=== PATIENT | male | born 1950 | race Caucasian/White ===

== ENCOUNTER → 2016-07-07 | Outpatient (CLI) | payer BC ==
[~2016-07-07] MED LIST: ALLO100T PO; BROM0.07; MULT-506 PO; NADO40TA20 PO; NAPR1TAB9 PO; PRED1SUS3; SILD50TA PO
== END | disposition home or self-care (01) ==
LOC: C.RDSM 13:25
PROVIDERS: ATTEND Physical Medicine & Rehabilitation Sports Medicine
DX: M25.531 Pain in right wrist (principal); M25.532 Pain in left wrist

== ENCOUNTER → 2016-08-12 | Day surgery (SDC) | payer BC ==
[2016-07-23 12:14] LABS: BASO % 0.6 %; BASO ABS # 0.03 K/uL (0-0.2); COMPLETE YES; EOS % 3.5 %; HEMATOCRIT 48.7 % (42-52); IG% 0.2 %; LYMPH % 29.3 %; LYMPH ABS # 1.52 K/uL (1.2-3.4); MEAN CELL VOLUME 95.5 fL (80-100); MEAN CORPUSCULAR HEMOGLOBIN 33.3 pg (25-34); MEAN CORPUSCULAR HGB CONC 34.9 g/dl (32-36); MEAN PLATELET VOLUME 11.1 fL (7.4-10.4); MONO % 8.1 %; NEUT % 58.3 %; PLATELET COUNT 204 K/uL (130-400); WHITE BLOOD COUNT 5.18 K/uL (4.8-10.8)
[2016-07-23 12:31] LABS: BLOOD UREA NITROGEN 29 mg/dl (7-18); BUN/CREATININE RATIO 30.3 (10-20); CALCIUM 8.9 mg/dl (8.5-10.1); CARBON DIOXIDE 30 mmol/L (21-32); CHLORIDE 105 mmol/L (98-107); CREATININE 0.94 mg/dl (0.60-1.40); GLUCOSE 102 mg/dl (70-99); POTASSIUM 4.5 mmol/L (3.5-5.1); SODIUM 140 mmol/L (136-145)
[2016-07-25 11:23] VITALS: Ht 177.8 cm; Wt 84.1 kg
[~2016-08-12] VITALS: Ht 177.8 cm; Wt 84.1 kg
[~2016-08-12] MED LIST changes: +ATROPINE SULFATE 0.1 MG/ML 5ML SYR IV PRN; -BROM0.07; +BUPIVACAINE 0.5 % 5 MG/1 ML PF 10ML VIAL ONE; +CEFAZOLIN 2000 MG/60 ML D5W IV SCH; +EpHEDrine SULFATE INJ 50 MG/ML AMP IV PRN; +FENTANYL CITRATE INJ 50 MCG/1 ML 2 ML VIAL ONE; +FLUMAZENIL 0.1 MG/1 ML 10 ML VIAL IV PRN; +HYDROmorphone INJ 1 MG/ML SYR IV PRN; +LABETALOL HCL IV 5 MG/ML 20ML IV PRN; +LACTATED RINGER'S 1000ML 1,000 ML IV SCH; +LIDOCAINE HCL 2% 2 ML VIAL (20MG/ML) ONE; +LIDOCAINE HCL 2% LOCAL 20 ML VIAL ONE; +MIDAZOLAM HCL 1 MG/ML 2ML VIAL ONE; -NADO40TA20 PO; +NALOXONE HCL 0.4 MG/1 ML VIAL/CARP IV PRN; +ONDANSETRON INJ 2 MG/ML 2 ML VIAL IV PRN; -PRED1SUS3; +PROMETHAZINE HCL INJ 12.5 MG in SODIUM CHLORIDE 0.9% 50ML 50 ML IV PRN; +PROPOFOL IV EMULSION 10 MG/ML 20 ML VIAL IV ONE; -SILD50TA PO; +SODIUM CHLORIDE 0.9% 1000ML 1,000 ML IV SCH
--- NOTE | 2016-08-12 06:36 | History & Physical Bridge Note ---
H&P Re-Evaluation Bridge Note: I have examined the patient, reviewed the History & Physical and in the interval since the performance of the History & Physical I have noted the following changes of clinical significance: No changes noted
--- NOTE | 2016-08-12 06:37 | Discharge Instructions ---
Discharge Instructions Visit Reason for Visit: Right Carpal Tunnel Syndrome Discharge Discharge Diagnosis / Problem: same Discharge Goals Goal(s): Decrease discomfort, Improve function Medications Stopped Medications Name(s): na Restart Stopped Medication(s): use scripts as directed Activity Recommendations Activity Limitations: as noted below Lifting Limitations: until after follow-up appointment Exercise/Sports Limitations: until after follow-up appointment May Resume Sexual Activity: when tolerated Shower/Bathe: keep incision dry Driving or Machine Use: no limitations Anesthesia . Post Anesthesia Instructions: If you have had General Anesthesia or IV Sedation: * Do not drive today. * Resume driving when surgeon permits. * Do not make important decisions or sign legal documents today. * Call surgeon for: 1. Temperature elevations greater than 101 degrees F. 2. Uncontrollable pain. 3. Excessive bleeding. 4. Persistent nausea and vomiting. 5. Medication intolerance (nausea, vomiting or rash). * For nausea and vomiting use only clear liquids such as: tea, soda, bouillon until nausea subsides, then gradually increase diet as tolerated. * If you have any concerns or questions, call your surgeon's office. If physician is unavailable and it is an emergency, call 911 or go to the nearest emergency room. . Instructions / Follow-Up Instructions / Follow-Up The following are instructions to follow after minor hand surgery. ACTIVITY RECOMMENDATIONS: * Minimize activity until your first visit after surgery. * No excessive walking, jogging, sports or laboring. * Return to activity is individualized. Most patients are able to return to everyday activities within 2 weeks. * Return to sports or intensive labor usually occurs at 1-2 months. * DRIVING: Driving may be resumed when you feel you have adequate pain control and use of the hand. * BATHING: You may shower or sponge-bathe immediately after surgery. The dressing will need to be covered with a plastic bag or plastic wrap until the dressing is changed on the fourth or fifth day after surgery. Once the dressing has been changed on the fourth or fifth day after surgery, you may shower and get the incision wet. * Wash with regular soap and water. * Do not bathe (submerge the incision), soak, swim or use a hot tub until the incision is completely healed over with normal skin and the doctor has given the OK to proceed. * There is no need to apply any ointments, powders or salves to your incision. * Do not apply alcohol or hydrogen peroxide directly to the incision. Diluted peroxide (50:50 mixture with sterile saline) may be used to clean dried blood from around the incision area. WORK/SCHOOL: * You may return to sedentary work or school when you are feeling comfortable. This is usually 3-7 days after surgery. * Expect increased discomfort with increased activity. Continue to elevate and ice the hand as much as possible. DIET: * Resume previous diet. MEDICATIONS: * You will have a prescription for pain medication and an anti-inflammatory medication after surgery. Use the pain pills for severe pain and the anti-inflammatory for less severe pain. * Once the pain pills have run out, try to use the anti-inflammatory. If this is not effective then contact the office for assistance. * The pain medication may cause nausea, constipation and sleepiness. You should see how they affect you before driving or similar activity. * The anti-inflammatory may cause stomach upset and bleeding. If this occurs, let your doctor know immediately . * Some patients may need blood clot prevention. This can be done with either a pill or a simple shot. Your doctor will advise you on when to begin these medications and how to take them. * Do not take aspirin or other anti-inflammatory products (i.e. Advil or Aleve ) if taking blood thinner medication. * Take a stool softener like Colace or a stimulant like Senokot to prevent constipation. SPECIAL CARE INSTRUCTIONS: ICE: * Do not apply ice directly to the skin. * Use a thin dressing or stockinet between the skin and ice bag. The dressing in place after surgery will suffice. * Apply ice for 20-30 minutes and repeat every 2-4 hours. This is especially important for the first 3-7 days after surgery. * Once the pain improves, use ice as needed. ELEVATION: * Keep your hand elevated at or above the level of your heart as much as possible. * Expect some increased discomfort and swelling if you allow your hand to hang down for any length of time. DRESSING: * Your dressing will be changed 4-5 days after surgery by the physical therapist or physician's syrup mixer assistant. Leave your dressing intact until this time. * You may then change your dressing daily with clean dry gauze or Band-aids and a soft wrap or stockinet. * Always wash your hands prior to touching the incision area. * Once the stitches are removed, you may leave the wound open to air or cover with a thin bandage. * There is no need to apply any ointments, powders or salves to your incision. * Expect some bloody drainage for the first few days after surgery. * Leave the tape strips in place (if present) for 5-7 days. * The initial dressing after surgery may become soaked with blood or fluid which is normal. You may reinforce your dressing with clean, dry gauze as needed. BRACE: * Bracing is generally not needed after routine hand surgery. THERAPY: * Physical therapy may be prescribed after your surgery. * For carpal tunnel and trigger digit surgery you may begin moving your fingers and wrist immediately after surgery as tolerated. * Be careful to not overuse. * Once the sutures are removed, further range of motion exercises can be performed. * Hand incisions may be very sensitive for a few months after surgery so avoid excessive pressure on the incision. If necessary, use a padded weightlifters' glove. * You may massage the incision with skin cream to make it less sensitive and reduce scarring. * Hand strength usually returns with normal use. * If needed, squeezing a soft sponge or Play-dough may help. * Your doctor will recommend physical therapy if necessary. PROBLEMS/QUESTIONS: * If you have any problems such as severe pain, numbness, tingling or high fevers or if you have any questions, please contact the office at [phone]. * It is not uncommon to have some numbness and tingling after the surgery especially if you have had a nerve block done. This should gradually improve over the first 1- 2 days. If this persists longer or worsens then contact the office. FOLLOW UP VISIT: * If not already scheduled, please call the office at to schedule follow-up appointments for approximately 10 days, 6 weeks and 3 months after surgery. Diet Recommendations Recommended Home Diet: resume previous diet Procedures Procedures Performed: carpal tunnel release right Pending Studies Studies pending at discharge: no Medical Emergencies . Who to Call and When: Medical Emergencies: If at any time you feel your situation is an emergency, please call 911 immediately. . Non-Emergent Contact Non-Emergency issues call your: Specialist Call Non-Emergent contact if: temperature is above 101.5 . . "Provider Documentation" section prepared by Juventino Thomas.
--- NOTE | 2016-08-12 07:29 | [facility] Post Operative Brief Note ---
Immediate Operative Summary Operative Date Aug 12, 2016. Pre-Operative Diagnosis Right Carpal Tunnel Syndrome Post-Operative Diagnosis Same Procedure(s) Performed Right Open Carpal Tunnel Release Surgeon Dr Thomas Postal Inspector Surgeon(s) Kayla Leon PA-C Estimated Blood Loss Trace Findings CTS Fluids (cc crystalloids) see anesthesia report Specimens None Drains none Anesthesia local /sedation Complication(s) None Disposition Recovery Room / PACU
[2016-08-12 07:31] VITALS: TEMP 36.7
--- NOTE | 2016-08-12 07:39 | Anesthesia Progress Nt - [facility] ---
Anesthesia Post Op Note Date & Time Aug 12, 2016 at 07:38 Vital Signs Pain Intensity: 3 Vital Signs Past 12 Hours Date Time Temp Pulse Resp B/P Pulse Ox O2 Delivery O2 Flow Rate FiO2 08/12/16 06:23 36.7 64 16 134/91 96 Room Air Notes Mental Status: alert / awake / arousable, participated in evaluation Pt Amnestic to Procedure: Yes Nausea / Vomiting: adequately controlled Pain: adequately controlled Airway Patency, RR, SpO2: stable & adequate BP & HR: stable & adequate Hydration State: stable & adequate Anesthetic Complications: no major complications apparent
--- NOTE | 2016-08-12 07:56 | OPERATIVE REPORT ---
DATE OF OPERATION: 08/12/2016 SURGEON: Dr. Thomas. MAMMAL KEEPER: Heriberto Leon PA-C. No resident or fellow available. PREOPERATIVE DIAGNOSIS: Severe carpal tunnel syndrome. POSTOPERATIVE DIAGNOSIS: Same. OPERATION PERFORMED: Right carpal tunnel release. PERIOPERATIVE SITUATION: Medically cleared male with intractable numbness and tingling in the median nerve distribution, has significant weakness in the thenar cone, also has some significant degenerative disease of the carpal joint and of the basal joint. It was addressed with him that this would only deal with decompressing the nerve. OPERATION: The patient appropriately identified, site verified, consent verified, 2 grams of Ancef confirmed as being given. The right upper extremity was identified as correct site and injected with 4 mL of 0.5% Marcaine plain and 4 mL of 2% plain lidocaine. The arm was then prepped and draped in usual routine fashion. Tourniquet inflated to 250 mmHg for a total of approximately 15 minutes and a curvilinear incision made based on the fourth ray. Blunt dissection carried down to the palmar fascia, this was then incised under direct vision, and the antebrachial fascia and transverse carpal ligament then identified and incised from approximately 0.5 cm proximal hook of the hamate to the superficial palmar arch. The nerve's main volar vein then pinked up almost immediately. The floor of the carpal canal had no masses. The FPL was intact. The wound was then irrigated and closed with horizontal mattress 3-0 nylon suture. The wound was then appropriately dressed with Dermabond, Xeroform, 4 x 4 gauze, and a light dressing with a volar splint. The patient transferred to [facility] area in satisfactory condition having tolerated the procedure well. Estimated blood loss trace. Crystalloid per anesthesia report. No DVT prophylaxis was required. I attest to the content of the Intraoperative Record and any orders documented therein. Any exceptio ns are noted below.
[2016-08-12 08:13] VITALS: BP 131/86; PULSE 59; O2SAT 97
--- NOTE | 2016-08-12 08:59 | OPERATIVE REPORT ---
DATE OF OPERATION: 08/12/2016 PREOPERATIVE DIAGNOSIS: Right wrist carpal tunnel syndrome. POSTOPERATIVE DIAGNOSIS: Right wrist same. PROCEDURE: Right wrist open carpal tunnel release. SURGEON: Dr. Thomas. VENEER STACKER: Heriberto Leon PA-C. HISTORY OF PRESENT ILLNESS: This 66-year-old white male presented to the office with complaints of numbness and tingling to his right wrist and hand. He had tried conservative care measures without success. EMG was obtained. He elected to proceed with surgical intervention after being educated about potential risks and outcomes. OPERATION: The patient was taken to the operating room where he was given local anesthetic and sedation. He was prepped and draped in the usual sterile fashion. Please see Dr. Thomas's operative report for specifics of the procedure. I was present for the entire case from initial patient positioning through final wound closure. Assistance was provided in tissue retraction, hemostasis, and final wound closure. The patient was taken to phase 2 recovery in satisfactory condition. I attest to the content of the Intraoperative Record and any orders documented therein. Any exceptio ns are noted below.
== END | disposition home or self-care (01) ==
LOC: X.SURG 06:04
PROVIDERS: ATTEND Physical Medicine & Rehabilitation Sports Medicine
DX: G56.01 Carpal tunnel syndrome, right upper limb (principal); M19.90 Unspecified osteoarthritis, unspecified site; M10.9 Gout, unspecified; Z98.890 Other specified postprocedural states

== ENCOUNTER → 2016-09-16 | Day surgery (SDC) | payer BC ==
[2016-08-25 15:16] VITALS: Ht 177.8 cm; Wt 84.1 kg
[~2016-09-16] VITALS: Ht 177.8 cm; Wt 84.1 kg
[~2016-09-16] MED LIST changes: +FENTANYL CITRATE INJ 50 MCG/1 ML 2 ML VIAL IV PRN; -FLUMAZENIL 0.1 MG/1 ML 10 ML VIAL IV PRN; -HYDROmorphone INJ 1 MG/ML SYR IV PRN; -LABETALOL HCL IV 5 MG/ML 20ML IV PRN; -NALOXONE HCL 0.4 MG/1 ML VIAL/CARP IV PRN; -ONDANSETRON INJ 2 MG/ML 2 ML VIAL IV PRN; -PROMETHAZINE HCL INJ 12.5 MG in SODIUM CHLORIDE 0.9% 50ML 50 ML IV PRN
--- NOTE | 2016-09-16 06:46 | Discharge Instructions ---
Discharge Instructions Date of Service Sep 16, 2016. Visit Reason for Visit: Left Wrist Carpal Tunnel Syndrome Discharge Discharge Diagnosis / Problem: same Discharge Goals Goal(s): Decrease discomfort, Improve function Medications Stopped Medications Name(s): na Restart Stopped Medication(s): resume all meds as scripts direct Activity Recommendations Activity Limitations: as noted below Lifting Limitations: until after follow-up appointment Exercise/Sports Limitations: until after follow-up appointment May Resume Sexual Activity: when tolerated Shower/Bathe: keep incision dry Driving or Machine Use: no limitations Anesthesia . Post Anesthesia Instructions: If you have had General Anesthesia or IV Sedation: * Do not drive today. * Resume driving when surgeon permits. * Do not make important decisions or sign legal documents today. * Call surgeon for: 1. Temperature elevations greater than 101 degrees F. 2. Uncontrollable pain. 3. Excessive bleeding. 4. Persistent nausea and vomiting. 5. Medication intolerance (nausea, vomiting or rash). * For nausea and vomiting use only clear liquids such as: tea, soda, bouillon until nausea subsides, then gradually increase diet as tolerated. * If you have any concerns or questions, call your surgeon's office. If physician is unavailable and it is an emergency, call 911 or go to the nearest emergency room. . Instructions / Follow-Up Instructions / Follow-Up The following are instructions to follow after minor hand surgery. ACTIVITY RECOMMENDATIONS: * Minimize activity until your first visit after surgery. * No excessive walking, jogging, sports or laboring. * Return to activity is individualized. Most patients are able to return to everyday activities within 2 weeks. * Return to sports or intensive labor usually occurs at 1-2 months. * DRIVING: Driving may be resumed when you feel you have adequate pain control and use of the hand. * BATHING: You may shower or sponge-bathe immediately after surgery. The dressing will need to be covered with a plastic bag or plastic wrap until the dressing is changed on the fourth or fifth day after surgery. Once the dressing has been changed on the fourth or fifth day after surgery, you may shower and get the incision wet. * Wash with regular soap and water. * Do not bathe (submerge the incision), soak, swim or use a hot tub until the incision is completely healed over with normal skin and the doctor has given the OK to proceed. * There is no need to apply any ointments, powders or salves to your incision. * Do not apply alcohol or hydrogen peroxide directly to the incision. Diluted peroxide (50:50 mixture with sterile saline) may be used to clean dried blood from around the incision area. WORK/SCHOOL: * You may return to sedentary work or school when you are feeling comfortable. This is usually 3-7 days after surgery. * Expect increased discomfort with increased activity. Continue to elevate and ice the hand as much as possible. DIET: * Resume previous diet. MEDICATIONS: * You will have a prescription for pain medication and an anti-inflammatory medication after surgery. Use the pain pills for severe pain and the anti-inflammatory for less severe pain. * Once the pain pills have run out, try to use the anti-inflammatory. If this is not effective then contact the office for assistance. * The pain medication may cause nausea, constipation and sleepiness. You should see how they affect you before driving or similar activity. * The anti-inflammatory may cause stomach upset and bleeding. If this occurs, let your doctor know immediately . * Some patients may need blood clot prevention. This can be done with either a pill or a simple shot. Your doctor will advise you on when to begin these medications and how to take them. * Do not take aspirin or other anti-inflammatory products (i.e. Advil or Aleve ) if taking blood thinner medication. * Take a stool softener like Colace or a stimulant like Senokot to prevent constipation. SPECIAL CARE INSTRUCTIONS: ICE: * Do not apply ice directly to the skin. * Use a thin dressing or stockinet between the skin and ice bag. The dressing in place after surgery will suffice. * Apply ice for 20-30 minutes and repeat every 2-4 hours. This is especially important for the first 3-7 days after surgery. * Once the pain improves, use ice as needed. ELEVATION: * Keep your hand elevated at or above the level of your heart as much as possible. * Expect some increased discomfort and swelling if you allow your hand to hang down for any length of time. DRESSING: * Your dressing will be changed 4-5 days after surgery by the physical therapist or physician's college sports assistant. Leave your dressing intact until this time. * You may then change your dressing daily with clean dry gauze or Band-aids and a soft wrap or stockinet. * Always wash your hands prior to touching the incision area. * Once the stitches are removed, you may leave the wound open to air or cover with a thin bandage. * There is no need to apply any ointments, powders or salves to your incision. * Expect some bloody drainage for the first few days after surgery. * Leave the tape strips in place (if present) for 5-7 days. * The initial dressing after surgery may become soaked with blood or fluid which is normal. You may reinforce your dressing with clean, dry gauze as needed. BRACE: * Bracing is generally not needed after routine hand surgery. THERAPY: * Physical therapy may be prescribed after your surgery. * For carpal tunnel and trigger digit surgery you may begin moving your fingers and wrist immediately after surgery as tolerated. * Be careful to not overuse. * Once the sutures are removed, further range of motion exercises can be performed. * Hand incisions may be very sensitive for a few months after surgery so avoid excessive pressure on the incision. If necessary, use a padded weightlifters' glove. * You may massage the incision with skin cream to make it less sensitive and reduce scarring. * Hand strength usually returns with normal use. * If needed, squeezing a soft sponge or Play-dough may help. * Your doctor will recommend physical therapy if necessary. PROBLEMS/QUESTIONS: * If you have any problems such as severe pain, numbness, tingling or high fevers or if you have any questions, please contact the office at [phone]. * It is not uncommon to have some numbness and tingling after the surgery especially if you have had a nerve block done. This should gradually improve over the first 1- 2 days. If this persists longer or worsens then contact the office. FOLLOW UP VISIT: * If not already scheduled, please call the office at to schedule follow-up appointments for approximately 10 days, 6 weeks and 3 months after surgery. Diet Recommendations Recommended Home Diet: resume previous diet Procedures Procedures Performed: left CTR Pending Studies Studies pending at discharge: no Medical Emergencies . Who to Call and When: Medical Emergencies: If at any time you feel your situation is an emergency, please call 911 immediately. . Non-Emergent Contact Non-Emergency issues call your: Specialist Call Non-Emergent contact if: temperature is above 101.5 . . "Provider Documentation" section prepared by Juventino Thomas.
--- NOTE | 2016-09-16 07:24 | [facility] Post Operative Brief Note ---
Immediate Operative Summary Operative Date Sep 16, 2016. Pre-Operative Diagnosis Left Carpal Tunnel Syndrome Post-Operative Diagnosis Same Procedure(s) Performed Left Wrist Open Carpal Tunnel Release Surgeon Dr Thomas Media Manager Surgeon(s) Kayla Leon PA-C Estimated Blood Loss Trace Findings severe cts Fluids (cc crystalloids) 450cc Specimens None Drains none Anesthesia local/sedation Complication(s) None Disposition Recovery Room / PACU
[2016-09-16 07:28] VITALS: TEMP 36.3
[2016-09-16 07:58] VITALS: BP 122/80; PULSE 63; O2SAT 96
--- NOTE | 2016-09-16 08:15 | Anesthesia Progress Nt - [facility] ---
Anesthesia Post Op Note Date & Time Sep 16, 2016 at 08:15 Vital Signs Pain Intensity: 0 Vital Signs Past 12 Hours Date Time Temp Pulse Resp B/P Pulse Ox O2 Delivery O2 Flow Rate FiO2 09/16/16 07:58 63 20 122/80 96 Room Air 09/16/16 07:28 36.3 65 14 126/81 98 Room Air 09/16/16 06:24 36.8 67 16 121/78 96 Room Air Notes Mental Status: alert / awake / arousable, participated in evaluation Pt Amnestic to Procedure: Yes Nausea / Vomiting: adequately controlled Pain: adequately controlled Airway Patency, RR, SpO2: stable & adequate BP & HR: stable & adequate Hydration State: stable & adequate Anesthetic Complications: no major complications apparent
--- NOTE | 2016-09-16 08:29 | OPERATIVE REPORT ---
DATE OF OPERATION: 09/16/2016 SURGEON: Dr. Thomas. DIVIDEND CLERK: Heriberto Leon PA-C. No resident or fellow available. 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 POSTOPERATIVE DIAGNOSIS: Same. OPERATION PERFORMED: Left carpal tunnel release with local by surgeon. IV sedation by anesthesia. PERIOPERATIVE SITUATION: Medically cleared male with intractable carpal tunnel complaints with other additional deformities and arthritis of his hand and wrist who has severe disease by EMG/nerve conduction study and severe thenar wasting. At this point in time it was described to him that this will probably not eliminate all of his findings; however, trying to prevent further progression and deterioration of the function of median nerve. OPERATION: The patient appropriately identified, site verified, consent verified, 2 grams of Ancef confirmed as being given. The left upper extremity was injected with 4 mL of 0.5% Marcaine plain and 4 mL of 2% plain lidocaine. The arm was then prepped and draped in usual routine fashion with the forearm tourniquet. The tourniquet inflated to 250 mmHg after exsanguination of limb with a rubber Esmarch bandage for a total of about 15 minutes. A curvilinear incision made based on the fourth ray. Blunt dissection carried down to the fascia. This was then incised under direct vision and extended distally to the superficial palmar arch. The floor of the carpal canal had no masses. The nerve became quite hyperemic upon release of the transverse carpal ligament and the distal antebrachial fascia. The motor takeoff branch was identified and intact, but not explored beyond its takeoff. The FPL was identified. The wound was then irrigated and then closed with horizontal mattress 4-0 nylon sutures, Dermabond and a volar splint. The patient transferred to the holding area in satisfactory condition having tolerated the procedure well. Estimated blood loss was trace. Crystalloid 400 mL. No DVT prophylaxis required. I attest to the content of the Intraoperative Record and any orders documented therein. Any exceptio ns are noted below.
--- NOTE | 2016-09-16 10:11 | OPERATIVE REPORT ---
PREOPERATIVE DIAGNOSIS: Left wrist carpal tunnel syndrome. POSTOPERATIVE DIAGNOSIS: Left wrist same. PROCEDURE: Left wrist open carpal tunnel release. SURGEON: Dr. Thomas. GUIDE RAIL CLEANER: Heriberto Leon PA-C. HISTORY OF PRESENT ILLNESS: This 66-year-old white male presented to the office with complaints of numbness and tingling in his left hand. EMG had been obtained. He elected to proceed with surgical intervention after being educated about potential risks and outcomes. He recently had a right wrist carpal tunnel release and has done well with that. He elected to proceed with the same on the left. OPERATION: The patient was taken to the operating room where he was given local anesthetic. He was then given IV sedation. He was prepped and draped in usual sterile fashion. Please see Dr. Thomas's operative report for specifics of the procedure. I was present for the entire case from initial patient positioning through final wound closure. Assistance was provided in patient positioning, tissue retraction, hemostasis, and final wound closure. The patient was taken to phase 2 recovery in satisfactory condition.
== END | disposition home or self-care (01) ==
LOC: X.SURG 06:08
PROVIDERS: ATTEND Physical Medicine & Rehabilitation Sports Medicine
DX: G56.02 Carpal tunnel syndrome, left upper limb (principal); M19.042 Primary osteoarthritis, left hand; M18.9 Osteoarthritis of first carpometacarpal joint, unspecified; M10.9 Gout, unspecified; Z98.890 Other specified postprocedural states

== ENCOUNTER → 2017-06-01 | Outpatient (CLI) | payer BC ==
[~2017-06-01] MED LIST changes: -ATROPINE SULFATE 0.1 MG/ML 5ML SYR IV PRN; -BUPIVACAINE 0.5 % 5 MG/1 ML PF 10ML VIAL ONE; -CEFAZOLIN 2000 MG/60 ML D5W IV SCH; -EpHEDrine SULFATE INJ 50 MG/ML AMP IV PRN; -FENTANYL CITRATE INJ 50 MCG/1 ML 2 ML VIAL IV PRN; -FENTANYL CITRATE INJ 50 MCG/1 ML 2 ML VIAL ONE; -LACTATED RINGER'S 1000ML 1,000 ML IV SCH; -LIDOCAINE HCL 2% 2 ML VIAL (20MG/ML) ONE; -LIDOCAINE HCL 2% LOCAL 20 ML VIAL ONE; -MIDAZOLAM HCL 1 MG/ML 2ML VIAL ONE; -PROPOFOL IV EMULSION 10 MG/ML 20 ML VIAL IV ONE; -SODIUM CHLORIDE 0.9% 1000ML 1,000 ML IV SCH
== END | disposition home or self-care (01) ==
LOC: C.RDSM 10:46
PROVIDERS: ATTEND Physical Medicine & Rehabilitation Sports Medicine
DX: M25.562 Pain in left knee (principal)

== ENCOUNTER 2017-07-20 05:00 | Day surgery (SDC) | payer BC ==
[2017-07-15 08:39] VITALS: BMI 28.0
--- NOTE | 2017-07-15 09:09 | PAT Medication Instructions ---
Service Date Jul 15, 2017. Current Home Medication List Allopurinol (Zyloprim), 300 MG PO QAM Naproxen (Aleve), 2 TAB PO QAM PRN for Pain Medication Instructions For Your Scheduled Surgery - Check with surgeon for instructions: Naproxen (Aleve), 2 TAB PO QAM PRN for Pain - Take the following medications the morning of surgery with a sip of water: Allopurinol (Zyloprim), 300 MG PO QAM If you have any questions please call us at [phone] or [phone] or [phone]
[2017-07-15 10:43] LABS: BASO % 0.3 %; BASO ABS # 0.02 K/uL (0-0.2); EOS % 2.5 %; EOS ABS # 0.15 K/uL (0-0.5); HEMATOCRIT 51.9 % (42-52); HEMOGLOBIN 18.2 g/dL (14.0-18.0); IG# 0.04 K/uL (0.00-0.02); LYMPH % 29.9 %; LYMPH ABS # 1.79 K/uL (1.2-3.4); MEAN CELL VOLUME 97.2 fL (80-100); MEAN CORPUSCULAR HEMOGLOBIN 34.1 pg (25-34); MEAN CORPUSCULAR HGB CONC 35.1 g/dl (32-36); MEAN PLATELET VOLUME 11.5 fL (7.4-10.4); MONO % 10.4 %; MONO ABS # 0.62 K/uL (0.11-0.59); NEUT % 56.2 %; NEUT ABS # 3.37 K/uL (1.4-6.5); PLATELET COUNT 187 K/uL (130-400); RED CELL DISTRIBUTION WIDTH CV 13.7 % (11.5-14.5); RED CELL DISTRIBUTION WIDTH SD 48.6 fL (36.4-46.3); WHITE BLOOD COUNT 5.99 K/uL (4.8-10.8)
[2017-07-15 11:42] LABS: CALCIUM 9.1 mg/dl (8.5-10.1); CREATININE 1.23 mg/dl (0.60-1.40); POTASSIUM 4.9 mmol/L (3.5-5.1)
[~2017-07-20] VITALS: Ht 177.8 cm; Wt 86.2 kg
[~2017-07-20 05:00] MED LIST changes: -MULT-506 PO
[2017-07-20 05:42] VITALS: BP 112/92; PULSE 71; TEMP 36.8; O2SAT 95; Ht 177.8 cm; Wt 86.2 kg
[2017-07-20] MEDS ORDERED: LACTATED RINGER'S 1000ML 1,000 ML IV SCH (06:00)
[2017-07-20] MEDS ORDERED: CEFAZOLIN 2000MG IV PUSH 15 ML IV SCH (06:00)
[2017-07-20] MEDS ORDERED: MIDAZOLAM HCL 1 MG/ML 2ML VIAL ONE (06:43)
[2017-07-20] MEDS ORDERED: FENTANYL CITRATE INJ 50 MCG/1 ML 2 ML VIAL ONE (06:44)
[2017-07-20] MEDS ORDERED: LIDOCAINE HCL 1% 20 ML VIAL ONE (06:54)
[2017-07-20] MEDS ORDERED: CEFAZOLIN SOD 1 GM VIAL ONE (06:54)
[2017-07-20] MEDS ORDERED: BUPIVACAINE 0.5 % 5 MG/1 ML MPF 30ML VIAL ONE (06:54)
[2017-07-20] MEDS ORDERED: ONDANSETRON INJ 2 MG/ML 2 ML VIAL IV PRN ×2 (07:00→08:00)
[2017-07-20] MEDS ORDERED: ATROPINE SULFATE 0.1 MG/ML 5ML SYR IV PRN (07:00)
[2017-07-20] MEDS ORDERED: FENTANYL CITRATE INJ 50 MCG/1 ML 2 ML VIAL IV PRN (07:00)
[2017-07-20] MEDS ORDERED: KETOROLAC TROMETHAMINE 15 MG/ML VIAL IV. PRN (07:00)
--- NOTE | 2017-07-20 07:56 | [facility] Operative Report ---
Operative Report Operative Date Jul 20, 2017. Pre-Operative Diagnosis Right inguinal hernia Post-Operative Diagnosis Right inguinal hernia, INDIRECT w/ lipoma Procedure(s) Performed Open Right Inguinal Hernia Repair with Mesh Surgeon Dr. Ramu Kay Tree Trimmer Helper Surgeon(s) Duncan Trejo PA-C Estimated Blood Loss 5 mL Findings indirect defect Specimens Permanent specimens A: Lipoma of cord, right Drains None Anesthesia Type General Disposition Recovery Room / PACU I attest to the content of the Intraoperative Record and any orders documented therein. Any exceptions are noted below.
[2017-07-20] MEDS ORDERED: HYDROCODONE/ACETAMIN 5/325MG TAB PO PRN ×2 (08:00)
[2017-07-20] MEDS ORDERED: CEPH500C2 PO (08:05)
[2017-07-20] MEDS ORDERED: HYDR-5688 PO (08:05)
--- NOTE | 2017-07-20 08:09 | Discharge Instructions ---
Discharge Instructions Date of Service Jul 20, 2017. Visit Reason for Visit: Right Inguinal Hernia Discharge Discharge Diagnosis / Problem: Rt inguinal hernia Discharge Goals Goal(s): Decrease discomfort, Improve function Activity Recommendations Activity Limitations: as noted below Lifting Limitations: no more than 25 pounds (for 4 weeks) Exercise/Sports Limitations: until after follow-up appointment May Resume Sexual Activity: when tolerated Shower/Bathe: keep incision dry (for 2 days- may shower over incision on Thu) Driving or Machine Use: resume 3 days after discharge Anesthesia . Post Anesthesia Instructions: If you have had General Anesthesia or IV Sedation: * Do not drive today. * Resume driving when surgeon permits. * Do not make important decisions or sign legal documents today. * Call surgeon for: 1. Temperature elevations greater than 101 degrees F. 2. Uncontrollable pain. 3. Excessive bleeding. 4. Persistent nausea and vomiting. 5. Medication intolerance (nausea, vomiting or rash). * For nausea and vomiting use only clear liquids such as: tea, soda, bouillon until nausea subsides, then gradually increase diet as tolerated. * If you have any concerns or questions, call your surgeon's office. If physician is unavailable and it is an emergency, call 911 or go to the nearest emergency room. . Instructions / Follow-Up Instructions / Follow-Up SPECIAL CARE INSTRUCTIONS: * Cover incisions and change daily for comfort/drainage. * Leave steri strips in place * May use ibuprofen for pain as tolerated. * Expect some swelling and bruising. Call your doctor if: * Temperature above 101 degrees * Pain not relieved by pain medicine ordered * There is increased drainage or redness from any incision * You have any unanswered questions or concerns [phone]. FOLLOW UP VISIT: If not already scheduled, please call the office for a follow-up visit. for next week- some suture removal OFFICE PHONE NUMBER: Dr. Kay Office Diet Recommendations Recommended Home Diet: resume previous diet Procedures Procedures Performed: Open Right Inguinal Hernia Repair with Mesh Pending Studies Studies pending at discharge: no Medical Emergencies . Who to Call and When: Medical Emergencies: If at any time you feel your situation is an emergency, please call 911 immediately. . Non-Emergent Contact Non-Emergency issues call your: Primary Care Provider, Surgeon . . "Provider Documentation" section prepared by Ramu Kay. .
[2017-07-20] MEDS ORDERED: LIDOCAINE HCL 2% 2 ML VIAL (20MG/ML) ONE (08:18)
[2017-07-20] MEDS ORDERED: PROPOFOL IV EMULSION 10 MG/ML 20 ML VIAL IV ONE (08:18)
[2017-07-20] MEDS ORDERED: METOCLOPRAMIDE HCL INJ 5 MG/ML 2 ML VIAL ONE (08:18)
[2017-07-20] MEDS ORDERED: ONDANSETRON INJ 2 MG/ML 2 ML VIAL ONE (08:18)
--- NOTE | 2017-07-20 08:24 | OPERATIVE REPORT ---
DATE OF OPERATION: 07/20/2017 NAME OF OPERATION: Open right inguinal hernia repair with mesh. PREOPERATIVE DIAGNOSIS: Right inguinal hernia. POSTOPERATIVE DIAGNOSIS: Same with indirect defect. STAFF SURGEON: Ramu Kay MD. DIRECTOR OF ASSESSING: Duncan Trejo PA-C. ANESTHESIA: General. DESCRIPTION OF THE PROCEDURE: The patient was brought in the operating room and placed on the operating table in supine position. Pneumatic stockings and orogastric tube were placed. His abdomen was prepped and draped in usual fashion. Incision was made in the right lower quadrant parallel to the inguinal ligament, carrying dissection down, identifying the external oblique fibers, incising them along their length to the external ring. The cord structures were mobilized. The patient had a large lipoma and also an indirect hernia sac. These were both mobilized. The lipoma excised. The hernia sac reduced and then the internal ring reinforced using a mesh plug, secured to surrounding tissue using 2-0 Ethibond suture. A large mesh patch was placed into the floor of the canal over the mesh plug, around the cord structures, secured to surrounding tissue using #2-0 Ethibond suture. We were able to identify the iliohypogastric nerves. I did not see the ilioinguinal nerve. The external oblique fibers were then closed over the mesh around the cord structures using 2-0 Ethibond suture and then the site anesthetized using 0.5% plain Marcaine. Skin was also anesthetized using 0.5% plain Marcaine prior to incision. Subcutaneous tissue was reapproximated using 2-0 plain catgut suture. Then the skin reapproximated using 4-0 nylon suture and Steri-Strips. My culinary assistant helped with prepping, draping, entering the skin, exposing the hernia, mobilizing the hernia, repair of the hernia and closure of the wound. The patient transferred to recovery room in stable condition. I attest to the content of the Intraoperative Record and any orders documented therein. Any exception s are noted below.
--- NOTE | 2017-07-20 08:47 | Anesthesiology Progress Note ---
Anesthesia Post Op Note Date & Time Jul 20, 2017 at 08:45 Vital Signs Pain Intensity: 0 Vital Signs Past 12 Hours Date Time Temp Pulse Resp B/P (MAP) Pulse Ox O2 Delivery O2 Flow Rate FiO2 07/20/17 08:35 61 16 135/98 97 Room Air 07/20/17 08:25 66 16 125/89 95 Oxymask 3 07/20/17 08:15 66 16 128/84 99 Oxymask 3 07/20/17 08:07 36.0 70 16 154/90 96 Oxymask 5 07/20/17 05:42 36.8 71 18 112/92 (99) 95 Room Air Notes Mental Status: alert / awake / arousable, participated in evaluation Pt Amnestic to Procedure: Yes Nausea / Vomiting: adequately controlled Pain: adequately controlled Airway Patency, RR, SpO2: stable & adequate BP & HR: stable & adequate Hydration State: stable & adequate Anesthetic Complications: no major complications apparent Patient found to be in atrial flutter from start of case - no cardiac history. Spoke with Dr Bradley who will see him in recovery. Patient doing very well.
[2017-07-20 09:15] VITALS: BP 126/91; PULSE 62; TEMP 36.5; O2SAT 96
[2017-07-20 09:45] VITALS: BP 139/91; PULSE 65; TEMP 36.5; O2SAT 96
[2017-07-20 10:15] VITALS: BP 141/88; PULSE 67; TEMP 36.6; O2SAT 98
--- NOTE | 2017-07-20 12:14 | CARDIOLOGY CONSULTATION ---
DATE OF CONSULTATION: 07/20/2017 PERTINENT HISTORY: Mr. Lewis is a 67-year-old male who underwent repair of a right inguinal hernia earlier today. This consultation was ordered as the patient was noted to be in atrial flutter with a controlled ventricular response. The patient was in his usual state of health until earlier today. As above, he underwent surgical repair of an inguinal hernia. He was noted to be in atrial flutter with a controlled ventricular response throughout the procedure and in the postoperative arena. The patient has never known of atrial dysrhythmia previously. He specifically denies palpitations at this time. The patient is vigorous in his daily activities and exercises 5 days of each week at the [facility]. He has not experienced exertional chest pain or limiting dyspnea. He further denies syncope, presyncope, PND, orthopnea, lower extremity edema, and claudication. Currently, the patient is resting comfortably without complaints. PAST MEDICAL HISTORY: 1. Paroxysmal atrial flutter. 2. Gout. 3. Left triceps ruptured -- 2010. 4. Left Achilles tendon repair -- 2000. 5. Bilateral intraocular lens implants. 6. Bilateral carpal tunnel release. USUAL OUTPATIENT MEDICATIONS: Allopurinol 300 mg daily. ALLERGIES: None. SOCIAL HISTORY: The patient is currently retired. He is a . Habits, smoking 5 cigars each week. Alcohol use is occasional. FAMILY HISTORY: Father at age of 72 from myocardial infarction. Mother at age of 78 from unknown causes. Siblings are healthy. No early coronary artery disease. REVIEW OF SYSTEMS: A 10-point review of systems is negative except for that described above. PHYSICAL EXAMINATION: GENERAL: This is a well-developed, well-nourished white male in no acute distress. VITAL SIGNS: Blood pressure 134/93 with a regular pulse of 60. Respiratory rate is 16. The patient is afebrile at 36.2 degrees Celsius. Saturation is 95% on room air. HEENT: Negative. NECK: Supple with full carotid upstrokes. No carotid bruits. Jugular venous pressure is flat at 90 degrees. There is no thyromegaly. CARDIOVASCULAR: Reveals a regular rhythm with normal S1 and S2. Heart sounds are distant. No obvious murmurs. LUNGS: Clear without rales, rhonchi, or wheezes. ABDOMEN: Soft and nontender without bruits. EXTREMITIES: Reveal intact radial artery and posterior tibial pulses bilaterally. There is no peripheral edema. Right inguinal region is dressed. DATA: CBC notes a hemoglobin of 18.2, hematocrit 51.9, white count 5.99, platelet count 187,000. Electrolytes note a sodium of 138, potassium 4.9, chloride 106, bicarb 28, BUN 29, creatinine 1.23, glucose 120. EKG notes atrial flutter with a variable, but controlled ventricular response. IMPRESSION: Mr. Lewis is experiencing asymptomatic atrial flutter. His ventricular response is well controlled. We will initiate long-term anticoagulation when he will be seen in the outpatient arena after recovering from his surgery done today. PLAN: 1. Stable for hospital discharge. 2. We would initiate long-term anticoagulation once completely recovered from surgery. 3. Follow up next week in my office.
[2017-07-21] MEDS ORDERED: CEFAZOLIN 2000MG IV PUSH 15 ML IV SCH (06:00)
== END 2017-07-20 10:40 | disposition home or self-care (01) ==
LOC: C.ACU 05:00
PROVIDERS: ATTEND Surgery
DX: K40.90 Unilateral inguinal hernia, without obstruction or gangrene, not specified as recurrent (principal); M10.9 Gout, unspecified; F17.290 Nicotine dependence, other tobacco product, uncomplicated; E78.5 Hyperlipidemia, unspecified; Z79.899 Other long term (current) drug therapy; Z98.890 Other specified postprocedural states; Z82.49 Family history of ischemic heart disease and other diseases of the circulatory system

== ENCOUNTER → 2017-11-02 | Outpatient (CLI) | payer BC ==
[~2017-11-02] MED LIST changes: +CEPH500C2 PO; +HYDR-5688 PO
[2017-11-02 10:18] LABS: ALBUMIN 3.7 gm/dl (3.4-5.0); ALKALINE PHOSPHATASE 72 U/L (45-117); ALT/SGPT 20 U/L (12-78); AST/SGOT 16 U/L (15-37); BLOOD UREA NITROGEN 22 mg/dl (7-18); CALCIUM 8.6 mg/dl (8.5-10.1); CARBON DIOXIDE 27 mmol/L (21-32); CHOLESTEROL 138 mg/dl (0-200); CREATININE 0.96 mg/dl (0.60-1.40); GLUCOSE 85 mg/dl (70-99); LDL CHOLESTEROL CALCULATED 76 mg/dl; POTASSIUM 4.1 mmol/L (3.5-5.1); SODIUM 140 mmol/L (136-145); TOTAL PROTEIN 6.7 gm/dl (6.4-8.2)
== END | disposition home or self-care (01) ==
LOC: C.LAB1850 08:18
PROVIDERS: ATTEND Internal Medicine Pulmonary Disease
DX: Z00.00 Encounter for general adult medical examination without abnormal findings (principal); Z12.5 Encounter for screening for malignant neoplasm of prostate; I48.92 Unspecified atrial flutter; M19.90 Unspecified osteoarthritis, unspecified site; I48.0 Paroxysmal atrial fibrillation